=== PATIENT | male | born 1975 | race Caucasian/White ===

== ENCOUNTER → 2020-06-03 11:50 | Outpatient (BNVA) | payer BC, SELFPAY | PROVIDERS: Visit Provider Urology | DX: Z76.89 Persons encountering health services in other specified circumstances (principal) ==

== ENCOUNTER → 2020-10-21 16:03 | Outpatient (BNVA) | payer BC, SELFPAY | PROVIDERS: Visit Provider Urology ==

== ENCOUNTER → 2022-11-14 14:09 | Outpatient (BNVA) | payer MEDICAID, SELFPAY | PROVIDERS: PCP Family Medicine; Visit Provider Urology ==

== ENCOUNTER 2024-07-03 11:26 | Outpatient (AMB) | payer MEDICARE, SELFPAY ==
--- NOTE | 2024-07-03 11:27 | A.OFFPC_ITS ---
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 Intake Note: patient here for new patient visit Mid Wife Required: No Allergies penicillin V Allergy (Unknown, Verified 07/03/24 12:00) Unknown Medication List - Last Reconciled 07/03/24 by Jefe Maria CNP clomiphene citrate 50 mg PO .QOD 90 days tadalafil 10 mg PO DAILY 90 days Tobacco use date assessed: 07/03/24 Dental Screening Dental Screen Date: 07/03/24 Did you have a dental visit in the last 12 months?: No Did you have a dental problem in the last 6 months where you did not have access to dental care?: No Was dental information given to patient?: Yes HPI HPI Comments History of Present Illness Details 48-year-old male presents to establish c are. Prior PCP? - Unknown, likely in [place] Last office visit/CPE/labs - Few years ago Acute issue(s) - He is anxious 60% of time. He attribut es his anxiety symptoms to personal stressors and being an over thinker. He does not want to start psychotropic medications at this time. However, he wishes to consult with her psychiatric provider. Past Medical History - Acid reflux, hypogonadism, erectile dy sfunction, anxiety, ADHD, myopia (wears prescription glasses) Medications - Was on Adderall 15-20 years ago Surgical History - None Family History - Mom: Diabetes - PGM: Diabetes, colon polyps Social History - Nonsmoker. Does not vape. Does not dri nk alcohol. Smokes a bud of cannabis every other day - Has been making healthy dietary choice s. Exercises every other week. Generally sleep well Health maintenance - Last eye exam was 3-4 years ago. Prefe rred to Ophthalmology - Last dental visit was about 4 years ag o; encouraged to schedule an appointment with his dentist for routine dental care. - Last tetanus vaccine was in 2016 or 18 - Has not been vaccinated for the flu ; declines vaccination - Never been vaccinated for shingles; re commend shingle vaccine; may get the vaccine from a local pharmacy - Never had a colonoscopy Specialists - [facility] urology, Dr Li. 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 1. Little interest or pleasure in doing things: several days 2. Feeling down, depressed, or hopeless: several days 3. Trouble falling or staying asleep, or sleeping too much: several days 4. Feeling tired or having little energy: not at all 5. Poor appetite or overeating: several days 6. Feeling bad about yourself - or that you are a failure or have let yourself or your family down: not at all 7. Trouble concentrating on things, such as reading the newspaper or watching television: not at all 8. Moving or speaking so slowly that other people could have noticed. Or the opposite - being so fidgety or restless that you have been moving around a lot more than usual: not at all 9. Thoughts that you would be better off or of hurting yourself in some way: not at all Total score: 4 Depression Screening Interpretation: Negative Depression Screening Done: Yes 48525 - PHQ-9 Billing: Yes Source: Developed by Drs. Jairo Whitaker, Jossy Mukherjee, Black Kahn and colleagues, with an educational hina from [employer]. Thrive Questionnaire Date Thrive assessed: 07/03/24 I am a: Patient What is your living situation today?: I have a steady place to live Within the past 12 months, did the food you bought not last and you didn't have the money to get more?: Never true Within the past 12 months, did you worry whether your food would run out before you got money to buy more?: Never true Do you have trouble paying for medicines?: No Do you have trouble getting transportation to medical appointments?: No Do you have trouble paying your heating and electricity bill?: No Do you have trouble taking care of your child, family member or friend?: No Do you have trouble with day-to-day activities such as bathing, preparing meals, shopping, managing finances, etc.?: No Are you currently unemployed and looking for a job?: No Are you interested in more education?: No THRIVE Score: 0 AUDIT C Alcohol Use Questionnaire (AUDIT-C) 1. How often do you have a drink containing alcohol?: Never Total Score: 0 Score Reviewed/Action Taken: Yes BLAIRE-7 AMB Questionnaire BLAIRE-7 Date BLAIRE - 7 assessed: 07/03/24 Feeling nervous, anxious, or on edge: 2 = More than half the days Not being able to stop or control worryin = More than half the days Worrying too much about different things: 2 = More than half the days Trouble relaxin = More than half the days Being so restless that it is hard to sit still: 2 = More than half the days Becoming easily annoyed or irritable: 2 = More than half the days Feeling afraid as if something awful might happen: 1 = Several days Total BLAIRE-7 score (0-4 normal; 5-9 mild; 10-14 moderate; 15-21 severe): 13 Source: Developed by Drs. Jairo Whitaker, Jossy Mukherjee, Black Kahn and colleagues, with an educational hina from [employer]. BLAIRE-7 Assessment Billing BLAIRE-7 Assessment Tool: BLAIRE-7 Assessment 61952 Review of Systems Const Details: Denies chills, Denies fatigue, Denies fever(s), Denies headache(s) and Denies weakness HEENT Denies change in vision, Denies dizziness, Denies headache(s), Denies hearing loss, Denies nasal congestion, Denies sinus pain, Denies sinus pressure and Dave es sore throat Card Denies chest pain, Denies lightheadedness, Denies dyspnea and Denies other (palpitations) Resp Denies cough, Denies dyspnea and Denies wheezing GI Denies abdominal pain, Denies melena, Denies hematochezia, Denies change in bowel habits, Denies dyspepsia and Denies nausea Denies hematuria and Denies dysuria Musc Denies abnormal gait, Denies myalgias, Denies arthralgias, Denies numbness and Denies tingling Skin/Breast Denies rash, Denies unusual bruising and Denies wounds Neuro Denies abnormal gait, Denies dizziness, Denies headache(s), Denies memory loss, Denies numbness, Denies Sensory deficit (Neuro), Denies tingling and Denies weakness Psych Reports anxiety, Denies depression and Denies memory loss Endo Denies cold intolerance, Denies fatigue, Denies heat intolerance, Denies polydipsia and Denies polyuria Maximo/Lymph Denies easy bleeding and Denies easy bruising Aller/Immun Denies wheezing Physical exam (Primary Care) Vital Signs: Last Vital Signs Temp 97.7 F 07/03/24 11:46 Pulse 69 07/03/24 11:46 Resp 16 07/03/24 11:46 BP 109/69 07/03/24 11:46 Pulse Ox 96 07/03/24 11:46 Oxygen Delivery Method Room Air 07/03/24 11:46 BMI result Body Mass Index 23.8 Tobacco/Smoking Status: Tobacco use Status Tobacco use date assessed 07/03/24 07/03/24 11:40 Patient Tobacco Use Status Never used Tobacco 07/03/24 11:40 e-Cigarette/Vaping Use Never Used 07/03/24 11:40 PHQ-9: PHQ-9 Score PHQ-9: Total score 4 07/03/24 11:51 Depression Screening Interpretation: Negative Thrive Assessment: Date of Thrive Assessment Date Thrive assessed 07/03/24 07/03/24 11:49 Const Other: General: no acute distress, well developed, alert and awake Nutritional Appearance: well nourished Orientation/consciousness: patient oriented x3 HENMT Head: Yes normocephalic and Yes atraumatic Ears: hearing grossly normal bilaterally and TM's normal bilaterally General nose exam: Normal external nose present and Normal nares present Mouth: Normal oral and palatal mucosa present and moist mucous membranes Teeth and gingiva: dentition normal Throat: Yes oropharynx normal Eyes Pupils: Equal, round and reactive pupils present and Pupil accommodation reflex normal EOM: EOMs intact bilaterally Neck Neck: Yes normal visual inspection, Yes no lymphadenopathy and Yes trachea midline Thyroid: Thyroid normal Carotids: no bruits Lymphatic: no lymphadenopathy noted Chest Chest palpation & inspection: normal inspection of the chest Resp Effort & Inspection: normal respiratory effort Auscultation: clear to auscultation bilaterally Cardio Rate: regular rate Rhythm: regular rhythm Heart sounds: S1 normal heart sound present, S2 normal heart sound present, no gallops, no murmurs and no rubs Bruits: no abdominal aortic bruits and no carotid bruits GI Palpation (GI): No Abdominal aortic bruit present, Soft to palpation, nontender, No hepatosplenomegaly present and No Rebound tenderness present Auscultation: normal bowel sounds General: Yes no CVA tenderness Back/Spine/Pelvis Back: no CVA tenderness Cervical Spine: cervical ROM normal and No Cervical spine tenderness Thoracic/Lumbar Spine: thoraco-lumbar ROM normal, No pain with thoraco-lumbar ROM, No thoracic spinal tenderness and No lumbar spinal tenderness Skin General: warm and dry. Normal skin color. Normal skin turgor Lesions: no lesions Rashes: no rashes Trauma: no lacerations or abrasions Wounds: no wounds Nails: normal Neuro General: patient oriented x3, gait normal and CN's II-XI intact bilaterally Cranial nerves: Yes Equal, round and reactive pupils present Cognition (Neuro): normal cognition Gait exam (Neuro): Normal gait present Motor exam (neuro): 5/5 motor strength present throughout Sensory Exam: No Sensory deficit (Neuro) Deep tendon reflexes (DTR's): Right patellar reflex intensity grade: 2+ and Left patellar reflex intensity grade: 2+ Extrem General: Yes normal to inspection, No edema and No calf tenderness Psych Appearance: grossly normal Affect: normal affect Attitude: cooperative Thought process: Normal thought process present Coding Level of Care Code New Pt Level 3 (15348) New Pt Prev Care 40-64y(36929) Diagnoses Normal physical examination, routine Z00.00 Hypogonadism in male E29.1 Erectile dysfunction N52.9 Anxiety F41.9 ADHD F90.9 Prostate cancer screening Z12.5 Colon cancer screening Z12.11 Laboratory tests ordered as part of a complete physical exam (CPE) Z00.00 Additional Codes BLAIRE-7 Assessment Billing - BLAIRE-7 Assessment Tool: BLAIRE-7 Assessment 67823 ([id number]) PHQ-9 - 09753 - PHQ-9 Billing: Yes ([id number]) Assessment & Plan Assessment & Plan (1) Normal physical examination, routine: Code(s): Z00.00 - Encounter for general adult medical examination without abnormal findings Category: Medical Plan: No significant functional limitations noted. Advised to get fasting blood work done and schedule a telehealth visit in 2-3 weeks for labs review or return sooner with symptoms or concerns. Verbalized understanding and agreed with treatment plan. (2) Hypogonadism in male: Code(s): E29.1 - Testicular hypofunction Category: Medical Plan: On clomiphene citrate and tadalafil. Was followed by Dr. Li, urologist. New referral made to Dr. Li. (3) Erectile dysfunction: Code(s): N52.9 - Male erectile dysfunction, unspecified Category: Medical Plan: Reports as per HPI (4) Anxiety: Code(s): F41.9 - Anxiety disorder, unspecified Category: Medical Plan: BLAIRE-7 score revealed moderate anxiety. PHQ-9 score is normal. Declines medication treatment at this time. Contact information given for [facility]; advised to contact them before his next visit. Will refer to another provider if there issues with health insurance coverage. Verbalized understanding and agreed with the plan. (5) ADHD: Code(s): F90.9 - Attention-deficit hyperactivity disorder, unspecified type Category: Medical Plan: Plan as above. (6) Prostate cancer screening: Code(s): Z12.5 - Encounter for screening for malignant neoplasm of prostate Category: Medical Plan: PSA lab ordered. (7) Colon cancer screening: Code(s): Z12.11 - Encounter for screening for malignant neoplasm of colon Category: Medical Plan: He has never had a colonoscopy. Referred to [facility] gastroenterology for colonoscopy. (8) Laboratory tests ordered as part of a complete physical exam (CPE): Code(s): Z00.00 - Encounter for general adult medical examination without abnormal fin dings Category: Medical Plan: Fasting labs ordered as part of a complete physical exam. Advised to fast for at least 10 hours before getting labs drawn. May drink water Verbalized understanding and agreed with treatment plan. Orders: Orders Comprehensive [place]. Panel Fast Today Z00.00 - Encounter for general adult medical examination without abnormal findings Lipid Panel Today Z00.00 - Encounter for general adult medical examination without abnormal findings TSH reflex Free T4 Today Z00.00 - Encounter for general adult medical e xamination without abnormal findings UA CC w/rflx Micro + Cult Today Z00.00 - Encounter for general adult medical examination without abnormal findings Complete Blood Count Auto Diff Today Z00.00 - Encounter for general adult medical examination without abnormal findings Microalbumin, Random (w Creat) Today Z00.00 - Encounter for general adult medical examination without abnormal findings PSA, Ultra Sensitive Today Z00.00 - Encounter for general adult medical examination without abnormal findings Referrals Gastroenterology Referral Z12.11 - Encounter for screening for malignant neoplasm of colon Urology Referral E29.1 - Testicular hypofunction, N52.9 - Male erectile dysfunction, unspecified
[2024-07-03 11:46] VITALS: BP 109/69; PULSE 69; RESP 16; TEMP 36.5; O2SAT 96; BMI 23.8
== END 2024-07-03 12:32 | disposition home or self-care (01) ==
PROVIDERS: PCP Nurse Practitioner Family; Visit Provider Nurse Practitioner Family
DX: Z00.00 Encounter for general adult medical examination without abnormal findings (principal); E29.1 Testicular hypofunction; N52.9 Male erectile dysfunction, unspecified; F41.9 Anxiety disorder, unspecified; F90.9 Attention-deficit hyperactivity disorder, unspecified type; Z12.5 Encounter for screening for malignant neoplasm of prostate; Z12.11 Encounter for screening for malignant neoplasm of colon

== ENCOUNTER → 2024-07-03 11:26 | Outpatient (BNVA) | payer OTHER, SELFPAY | PROVIDERS: PCP Nurse Practitioner Family; Visit Provider Nurse Practitioner Family | DX: Z00.00 Encounter for general adult medical examination without abnormal findings (principal); E29.1 Testicular hypofunction; N52.9 Male erectile dysfunction, unspecified; F41.9 Anxiety disorder, unspecified; F90.9 Attention-deficit hyperactivity disorder, unspecified type | CPT/HCPCS: 96127 ==

== ENCOUNTER 2024-07-15 12:13 | Outpatient (REF) | payer OTHER, SELFPAY ==
[2024-07-15 14:57] LABS: MANUAL DIFF FLAG NO
[2024-07-15 15:03] LABS: Basophils Absolute Auto 0.1 X10*3/uL (0.0-0.2); Eosinophils Absolute Auto 0.1 X10*3/uL (0.0-0.4); Eosinophils Percent Auto 1.1 % (0-4); Hematocrit 41.8 % (42.0-52.0); Hemoglobin 14.1 g/dl (14.0-18.0); Imm Gran Abs Auto 0.03 X10*3/uL (0.00-0.03); Imm Gran Pct Auto 0.4 % (0.0-0.4); Lymphocytes Percent Auto 27.6 % (20-40); Mean Corpuscular HGB Conc 33.7 g/dl (31.0-36.0); Mean Corpuscular Hemoglobin 28.4 pg (27.0-33.0); Mean Corpuscular Volume 84.1 fL (80.0-98.0); Mean Platelet Volume 10.1 fL (9.4-12.4); Monocytes Absolute Auto 0.4 X10*3/uL (0.1-1.2); Monocytes Percent Auto 5.5 % (2-11); Neutrophils Absolute Auto 4.7 x10*3/uL (2.0-8.3); Neutrophils Percent Auto 64.4 % (45-73); Platelet Count 304 X10*3/uL (160-400); Red Blood Count 4.97 X10*6/uL (4.60-5.80); Red Cell Distribution Width 13.6 % (11.0-16.0); White Blood Count 7.3 X10*3/uL (4.8-10.8)
[2024-07-15 15:13] LABS: Appearance Urine Clear; Color Urine Yellow; Glucose Urine UA Negative (Negative); Leukocyte Esterase Urine Negative (Negative); Nitrite Urine Negative (Negative); PH 6.5 (5.0-9.0); Specific Gravity - Urine <= 1.005 (1.005-1.025); Urine Blood Negative (Negative); Urine Ketones Negative (Negative); Urine Protein Negative (Neg-Trace)
[2024-07-15 15:30] LABS: Alanine Aminotransferase 24 U/L (0-40); Albumin Level 4.4 g/dL (3.5-5.0); Alkaline Phosphatase 44 U/L (39-117); Anion Gap 12 (12-20); Aspartate Amino Transferase 25 U/L (5-37); Bilirubin Total 0.6 mg/dL (0.0-1.0); Blood Urea Nitrogen 14 mg/dL (9-16); Calcium 9.4 mg/dL (8.4-10.2); Carbon Dioxide 27 mmol/L (22-29); Chloride 103 mmol/L (96-108); Cholesterol 207 mg/dL (<200); Estimated Glomerular Filt Rate > 60; Glucose Fasting 111 mg/dL (60-99); HDL Cholesterol 57 mg/dL (>40); LDL Cholesterol Calculated 120 mg/dL (<100); Potassium 4.1 mmol/L (3.3-5.1); Sodium 138 mmol/L (135-145); Total Protein 7.1 g/dL (6.5-8.0); Triglycerides 154 mg/dL (<150)
[2024-07-15 15:48] LABS: Creatinine Urine 10.25 mg/dL; Microalbumin Urine < 5.0 mg/L
[2024-07-19 17:34] LABS: PSA, Ultra Sensitive 1.88 ng/mL
== END 2024-07-15 12:14 | disposition home or self-care (01) ==
LOC: HO.WFDLDS 12:13
PROVIDERS: Visit Provider Nurse Practitioner Family
DX: Z00.00 Encounter for general adult medical examination without abnormal findings (principal); Z12.5 Encounter for screening for malignant neoplasm of prostate
CPT/HCPCS: 36415; 80053; 80061; 81003; 82570; 84153; 84443; 85025

== ENCOUNTER 2024-07-23 14:45 | Outpatient (AMB) | payer OTHER, SELFPAY ==
--- NOTE | 2024-07-23 14:43 | A.OFFPC_ITS ---
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 He offers no complaints and denies acute symptoms at this time. 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 Current occupational exposures/hazards: No Cognitive needs: No Hearing needs: No Vision needs: Yes Questionnaire Thrive Questionnaire Date Thrive assessed: 07/03/24 I am a: Patient What is your living situation today?: I have a steady place to live Within the past 12 months, did the food you bought not last and you didn't have the money to get more?: Never true Within the past 12 months, did you worry whether your food would run out before you got money to buy more?: Never true Do you have trouble paying for medicines?: No Do you have trouble getting transportation to medical appointments?: Yes Do you have trouble paying your heating and electricity bill?: No Do you have trouble taking care of your child, family member or friend?: No Do you have trouble with day-to-day activities such as bathing, preparing meals, shopping, managing finances, etc.?: No Are you currently unemployed and looking for a job?: No Are you interested in more education?: No Please select the resources that you would like help with: None Currently or been in a relationship where the following occur: No concerns reported THRIVE Score: 1 AUDIT C Alcohol Use Questionnaire (AUDIT-C) 2. How many drinks containing alcohol do you have on a typical day when you are drinking?: 1 or 2 3. How often do you have six or more drinks on one occasion?: Never Total Score: 0 BLAIRE-7 AMB Questionnaire BLAIRE-7 Date BLAIRE - 7 assessed: 07/03/24 Source: Developed by Drs. Jairo Whitaker, Jossy Mukherjee, Black Kahn and colleagues, with an educational hina from [employer]. Review of Systems Const Details: Denies chills, Denies fatigue, Denies fever(s), Denies headache(s) and Denies weakness Cardiac Denies chest pain, Denies claudication, Denies leg edema, Denies lightheadedness, Denies palpitations, Denies dyspnea, Denies dyspnea on exertion, Denies orthopnea and Denies other (Loss of consciousness) Resp Denies cough, Denies excessive phlegm production, Denies dyspnea, Denies dyspnea on exertion, Denies snoring and Denies wheezing Physical exam (Primary Care) Tobacco/Smoking Status: Tobacco use Status Tobacco use date assessed 07/23/24 07/23/24 14:45 Patient Tobacco Use Status Never used Tobacco 07/23/24 14:45 e-Cigarette/Vaping Use Never Used 07/23/24 14:45 Thrive Assessment: Date of Thrive Assessment Date Thrive assessed 07/03/24 07/23/24 14:45 Currently or been in a relationship where the following occur: No concerns reported Const Other: Telehealth visit. No physical exam. Telehealth Telehealth Telehealth Platform: Telephone Location of provider rendering services: practice address Location of patient: address on file Patient Identification confirmed using: Name, : Yes Telehealth method: voice only Patient verbally consented to treatment: Yes Patient verbally consented to billing insurance company: Yes Patient informed of any privacy concerns related to visit: Yes Coding Level of Care Code Tele Est Pt Level 3 (43171) Diagnoses Hyperlipidemia E78.5 Elevated fasting glucose R73.01 Time Spent (min) 10 Assessment & Plan Assessment & Plan (1) Hyperlipidemia: Code(s): E78.5 - Hyperlipidemia, unspecified Category: Medical Plan: Recent triglyceride, total cholesterol, and LDL levels are slightly elevated, 154, 207, and 120 respectively. Advised to limit foods high in saturated fat and avoid foods high in trans fat. Routine exercise encouraged. Fast for 10-12 hours, may drink water, and get blood work done to 3 days before next visit. Follow-up for telehealth visit in 3 months. Verbalized understanding and agreed with the plan. (2) Elevated fasting glucose: Code(s): R73.01 - Impaired fasting glucose Category: Medical Plan: Recent fasting glucose is slightly elevated, 111. Encouraged to get repeat fasting blood work as soon as he can. Will recheck fasting glucose and make changes as needed. Verbalized understanding and agreed with the plan. Orders: Orders Glucose Fasting Today R73.01 - Impaired fasting glucose Lipid Panel 3 Months E78.5 - Hyperlipidemia, unspecified
== END 2024-07-23 15:28 | disposition home or self-care (01) ==
LOC: HO.HMCFM 14:45
PROVIDERS: PCP Nurse Practitioner Family; Visit Provider Nurse Practitioner Family
DX: E78.5 Hyperlipidemia, unspecified (principal); R73.01 Impaired fasting glucose

== ENCOUNTER → 2024-07-23 14:45 | Outpatient (BNVA) | payer OTHER, SELFPAY | PROVIDERS: PCP Nurse Practitioner Family; Visit Provider Nurse Practitioner Family ==

== ENCOUNTER 2024-11-07 14:25 | Outpatient (AMB) | payer OTHER, SELFPAY ==
--- NOTE | 2024-11-07 14:25 | MHC.OFFVIS ---
Intake Visit Reasons: ED/testicular hypofunction(last seen 2022) Intake Note: Patient is present for ED/TESTICULAR HYPOFUNCTION Urology Medication:TADALAFIL Antibiotic Allergy:PENICILLIN V Blood Thinner:NONE Mash Processing Operator Required: No Allergies penicillin V Allergy (Unknown, Verified 11/07/24 14:27) Unknown HPI Comments Details: Michael is a pleasant male. He is a patient of Dr. Jimenez. He is seen for the following urologic conditions - hypogonadism - erectile dysfunction Telemedicine evaluation 15 minute consultation Doximity asiya Video attempted 10 mg daily tadalafil Start enclomiphene 12 week follow-up check testosterone T labs - 10/07 319 7.6 Free Hypogonadism: Currently respond well to tadalafil as single agent Previously had been on clomiphene 50 mg every other day He presents today for further evaluation and followup of his hypogonadism Current therapy Initial symptoms include erectile dysfunction Yes decreased libido Yes change in mood/depression Yes in muscle size/strength Yes increased fatigue/malaise Yes The onset of symptoms has been gradual, over the past few years. Associate conditions include obstructive sleep apnea No CAD No obesity No stress - financial, family, employment No heavy alcohol or illicit drug use No Laboratory results - 10/05 T 340 PSA 1.9 Therapeutic plan repeat baseline laboratory [facility] Medical History (Updated 07/23/24 @ 15:16 by Jefe Maria CNP) Anxiety Acid reflux Sinusitis Left leg injury Family History (Updated 07/03/24 @ 11:45 by Loretta Fleming MA) Son Mental illness in member of household Mother Diabetes Paternal Grandmother Diabetes Social History (Updated 07/03/24 @ 11:40 by Loretta Fleming MA) Housing: Apartment Patient Tobacco Use Status: Never used Tobacco e-Cigarette/Vaping Use: Never Used Second Hand Smoke Exposure: No Substance Use Type: Marijuana service: No Current occupational status: employed 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 Current occupational exposures/hazards: No Cognitive needs: No Hearing needs: No Vision needs: Yes Review of Systems Const All systems reviewed & are unremarkable except as noted in HPI and below Reports no additional complaints Resp Reports no additional complaints GI Reports no additional complaints Reports as per HPI Musc Reports no additional complaints Physical Exam Telemedicine evaluation Appropriate responses Regular breathing rate and rhythm HEENT Head: Yes normal to inspection Ears: hearing grossly normal bilaterally Eyes General: appearance normal, both eyes and all related structures Neck Neck: Yes normal visual inspection Chest Chest palpation & inspection: normal inspection of the chest Resp Effort & Inspection: normal respiratory effort and able to speak in complete sentences Telehealth Telehealth Location of provider rendering services: practice address Location of patient: address on file Patient Identification confirmed using: Name, : Yes Telehealth method: voice only Patient verbally consented to treatment: Yes Patient verbally consented to billing insurance company: Yes Patient informed of any privacy concerns related to visit: Yes Assessment & Plan Assessment & Plan (1) Erectile dysfunction: Code(s): N52.9 - Male erectile dysfunction, unspecified Category: Medical (2) Hypogonadism in male: Code(s): E29.1 - Testicular hypofunction Category: Medical Plan Initiate enclomiphene Three-month follow-up lab work Orders: Orders Testosterone, Free/Total 10 Weeks E29.1 - Testicular hypofunction Patient Instructions: This note is constructed using voice recognition software. While every effort has been made to ensure accuracy licensed investment sales assistant errors may have been included. Imaging studies, laboratory and physical exam results were discussed and reviewed in detail. No major barriers to patient understanding were identified. An opportunity to ask questions regarding the treatment plan was provided. All questions were answered. The patient expressed understanding and agreement with the above treatment plan. The patient is aware they should contact our office by phone for worsening of their current condition or the appearance of new urologic symptoms. Compliance is encouraged with any medications and followup testing that is ordered. It is a privilege to participate in the urologic care of your patient. If you have any questions or concerns regarding treatment for the above conditions, or other urologic issues, please do not hesitate to contact me. The office telephone contact is [phone]. Sincerely, Dr Rene Li MD, [facility] - Urology Compassionate Specialist Care for the Genitourinary System Coding Level of Care Code Tele Est Pt Level 4 (59868) Diagnoses Erectile dysfunction N52.9 Hypogonadism in male E29.1
--- OUTSIDE RECORDS SUMMARY | 2024-11-07 15:04 | XMS_ITS | Clinical Summary ---
Author Organization [facility] ity Address [address] [place] [address] Care Team Providers Care Shells Inspector Name Role Phone Unavailable Primary Care Provider Unavailabl e Social History Tobacco Use Types Packs/Day Years Used Date Smoking Tobacco: Never Assessed Sex and Gender Information Value Date Recorded Sex Assigned at Not on file Legal Sex Male 2:44 PM EST Gender Identity Not on file Sexual Orientation Not on file Plan of Treatment Health Maintenance Due Date Last Done Comments DTaP,Tdap,and Td Vaccines (1 - Tdap) 1993 Hepatitis B Vaccines (1 of 3 - 19+ 3-dose series) 1993 COVID-19 Vaccine ( - 2023-2 5 season) 2024 Pneumococcal Vaccine: 50+ Ye ars (1 of 1 - PCV) 2024 Zoster Vaccines (1 of 2) 2024 Influenza Vaccine (Season Ended) 2025 HIB Vaccines Aged Out No longer eligi ble based on patient's age to complete this topic HPV Vaccines Aged Out No longer eligi ble based on patient's age to complete this topic Hepatitis A Vaccines Aged Out No long er eligible based on patient's age to complete this topic IPV Vaccines Aged Out No longer eligi ble based on patient's age to complete this topic MMR Vaccines Aged Out No longer eligi ble based on patient's age to complete this topic Meningococcal ACWY Vaccine Aged Out N o longer eligible based on patient's age to complete this topic Meningococcal B Vaccine Aged Out No l onger eligible based on patient's age to complete this topic Pneumococcal Vaccine: Pediat rics (0 to 5 Years) and At-Risk Patients (6 to 64 Years) Aged Out No longer eligible b ased on patient's age to complete this topic RSV Immunization Patients Un yrn 20 months Aged Out No longer eligible b ased on patient's age to complete this topic Varicella Vaccines Aged Out No longer eligible based on patient's age to complete this topic
== END 2024-11-07 16:30 | disposition home or self-care (01) ==
LOC: HO.HUSH 14:25
PROVIDERS: PCP Nurse Practitioner Family; Visit Provider Urology
DX: N52.9 Male erectile dysfunction, unspecified (principal); E29.1 Testicular hypofunction
CPT/HCPCS: 99214

== ENCOUNTER → 2024-11-07 14:25 | Outpatient (BNVA) | payer OTHER, SELFPAY | PROVIDERS: PCP Nurse Practitioner Family; Visit Provider Urology ==

== ENCOUNTER 2025-02-10 15:41 | Outpatient (AMB) | payer OTHER, SELFPAY ==
--- NOTE | 2025-02-10 15:47 | A.OFFVIS_ITS ---
Vital Signs 02/10/25 15:49 Height 6 ft Weight 255 lb BMI 34.6 BP 112/75 Pulse 75 Pulse Oximetry (%) 96 Oxygen Delivery Method Room Air Intake Visit Reasons: Colonoscopy Screening Intake Note: Patient new consult for EGD/Colonoscopy Screening. Patient cc: heartburn on and off, Family hx of polyps. Dietetic Assistant Required: No Accompanied by: Self / Same As Patient Allergies penicillin V Allergy (Unknown, Verified 02/10/25 15:47) Unknown Medication List - Last Reconciled 02/10/25 by Antonieta Montanez CNP [enclomiphene 1 tab PO DAILY 90 days] tadalafil 10 mg PO DAILY 90 days HPI HPI Colonoscopy Screening: Details: Patient is a 49-year-old male with PMH of anxiety and acid reflux. Referred by PCP for pre colonoscopy screening. This will be Michael's first colonoscopy. He reports experiencing daily bowel movements that are occasionally loose but denies frequent loose stools or constipation. He last noticed blood in his stool around five years ago, and states that it was nothing alarming. Michael occasionally experiences mild heartburn, approximately once every few months, primarily after consuming spicy or late-night meals. When heartburn occurs, it typically resolves on its own or with the occasional use of Tums. His appetite remains unchanged. Michael's weight has increased from 236 to 255 pounds since June, which he attributes to depression and irregular dietary habits. Patient denies: fever/chills, n/v, appetite changes, regurgitation,dysphasia, unintentional wt loss, ab pain or melena/hematochezia. Social hx: -denies ETOH use -occasional use of psychoactive mushrooms, denies other recreational drug use - former smoker, cessation 2016 - family hx as below - denies personal hx of CA - significant cardiopulmonary history -tolerated anesthesia in the past without difficulty. 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 Current occupational exposures/hazards: No Cognitive needs: No Hearing needs: No Vision needs: Yes Review of Systems Const Reports as per HPI ENT Reports as per HPI Card Reports as per HPI Resp Reports as per HPI GI Reports as per HPI Reports as per HPI Physical Exam Vital Signs: Last Vital Signs Pulse 75 02/10/25 15:49 BP 112/75 02/10/25 15:49 Pulse Ox 96 02/10/25 15:49 Oxygen Delivery Method Room Air 02/10/25 15:49 BMI result Body Mass Index 34.6 Const General: healthy appearing, no acute distress and well developed Nutritional Appearance: average body habitus Orientation/consciousness: patient oriented x3 HEENT Head: Yes normal to inspection, Yes normocephalic and Yes atraumatic Face and sinus: Yes normal facial exam Eyes General: appearance normal, both eyes and all related structures Neck Neck: Yes normal visual inspection Resp Effort & Inspection: normal respiratory effort, able to speak in complete sentences, no tracheal deviation and symmetric chest movement Cardio Jugular venous distension: no JVD Neuro General: patient oriented x3 Gait exam (Neuro): Normal gait present Psych Appearance: grossly normal Mental Status: mental status grossly normal Speech and movement: Normal speech and movement present Affect: normal affect Attitude: cooperative Thought process: Normal thought process present Thought content: Normal thought content present Insight: Good insight present (Psych) Judgement: Good judgement present (Psych) Assessment & Plan Assessment & Plan (1) Colon cancer screening: Code(s): Z12.11 - Encounter for screening for malignant neoplasm of colon Category: Medical Plan: Due for index screening colonoscopy. Rare intermittent blood in stools. Medications: -prescriptions for laxative tablets and MiraLax sent to pharmacy; instructions for Gatorade purchase and clear liquid diet given. Patient educated on scheduling process, procedure preparation, including avoiding certain foods and ensuring clear liquid intake Advised on necessity for ride post-procedure due to sedation. (2) Mild acid reflux: Code(s): K21.9 - Gastro-esophageal reflux disease without esophagitis Category: Medical Plan: infrequent episodes of heartburn without the need for ongoing medication. Episodes occur primarily after consuming triggered foods or eating late at n ight. Further Testing: Upper endoscopy during the colonoscopy to evaluate for esophagitis, gastritis or Carrasco's esophagus. Medication Management: He declined additional pharmacological management and prefers to continue Tums PRN as needed for heartburn. Education on GERD prevention : -Advised against heavy meals; encouraged small, frequent meals instead of large ones. - Instructed to remain upright for 2?3 hours after eating. - Advised to avoid late-night meals, spicy foods, caffeine, alcohol, known dietary triggers, and tight-fitting clothing. - Emphasis placed on gradual implementation of lifestyle changes to improve adherence and symptom control. (3) Hyperlipidemia: Code(s): E78.5 - Hyperlipidemia, unspecified Category: Medical Qualifiers: Hyperlipidemia type: mixed hyperlipidemia Qualified Code(s): E78.2 - Mixed hyperlipidemia Plan: elevated cholesterol on recent labs; dietary habits and weight gain noted. Further Testing: recommend repeat lipid panel per PCP. Medication Management: coordinate with PCP for ongoing management. Lifestyle Recommendations: Improve diet (reduce saturated fats, increase fiber), increase physical activity as tolerated, weight management strategies. Plan Follow-up after endoscopy or sooner as needed Time: I spent a total of 30 minutes on the date of encounter which includes: Preparing to see the patient (reviewed previous documentation, test results and medical history) Performing a medically appropriate exam and/or evaluation Ordering medications, tests, and procedures Documenting clinical information in the health record Medications: New bisacodyl (Dulcolax (bisacodyl)) Take four tablets pre colonoscopy instructions 20 mg (4 x 5 mg) PO ONCE 4 tabs 0RF 1 day polyethylene glycol 3350 (Miralax) per colonoscopy prep instructions 238 grams PO ONCE 238 grams 0RF Coding Level of Care Code New Pt New Pt Level 3 (93974) Patient Type New Diagnoses Colon cancer screening Z12.11 Mild acid reflux K21.9 Mixed hyperlipidemia E78.2 Hyperlipidemia type: mixed hyperlipidemia
[2025-02-10 15:49] VITALS: BP 112/75; PULSE 75; O2SAT 96; BMI 34.6
--- OUTSIDE RECORDS SUMMARY | 2025-02-10 16:23 | XMS_ITS | Clinical Summary ---
Author Organization [facility] ity Address [address] [place] [address] Care Team Providers Care Tentering Machine Off Bearer Name Role Phone Unavailable Primary Care Provider [...] Vaccine ( - 2023-2 5 season) 2024 Depression Screening 07/16/2024 Pneumococcal Vaccine: 50+ Ye ars (1 of 1 - PCV) 2024 Zoster Vaccines (1 of 2) 2024 Influenza Vaccine (#1) 2025 HIB Vaccines Aged Out No longer [...]
== END 2025-02-10 16:20 | disposition home or self-care (01) ==
LOC: HO.HGI 15:42
PROVIDERS: PCP Nurse Practitioner Family; Visit Provider Nurse Practitioner Family
DX: K21.9 Gastro-esophageal reflux disease without esophagitis (principal); E78.2 Mixed hyperlipidemia
CPT/HCPCS: 99203

== ENCOUNTER 2025-03-23 10:53 | Day surgery (SDC) | payer OTHER, SELFPAY ==
--- OUTSIDE RECORDS SUMMARY | 2025-02-23 10:14 | XMS_ITS | Clinical Summary ---
Author Organization [facility] ity Address [address] [place] [address] Care Team Providers Care Tape Rules Printing Machine Operator Name Role Phone Unavailable Primary Care Provider [...]
[2025-03-19 14:28] VITALS: BMI 34.6
--- NOTE | 2025-03-20 11:15 | P.CONAN_ITS ---
Documented by User: Amairani Eduardo NP 03/20/25 11:15 HPI - Anesthesia Eval Consult details Narrative: 49 yr old male for upper endoscopy, colonoscopy [facility] Active Problems Active Problems: All Active Problems (Updated 03/19/25 @ 14:26 by Fauzia Ruano RN) Mild acid reflux (Acute) Elevated fasting glucose (Acute) Hyperlipidemia (Acute) Colon cancer screening (Acute) Prostate cancer screening (Acute) ADHD (Acute) Normal physical examination, routine (Acute) Laboratory tests ordered as part of a complete physical exam (CPE) (Acute) Hypogonadism in male (Acute) Erectile dysfunction (Acute) Anxiety (Acute) Past Medical History Medical History Erectile dysfunction ADHD (attention deficit hyperactivity disorder) Hyperlipidemia Anxiety Acid reflux Sinusitis Family History Family History Son Mental illness in member of household Mother Diabetes Paternal Grandmother Diabetes Surgical History Surgical History (Updated 03/23/25 @ 13:07 by Katie Gilliland RN) Hx of tonsillectomy History of surgery on lower extremity Social History Social History (Updated 03/19/25 @ 14:31 by Fauzia Ruano RN) Household Members Other:: son Housing: Apartment Are you a primary health care facility administrator to a significant other at home: No Do you presently have visiting nurse or other home services: No Patient Tobacco Use Status: Former Tobacco user Tobacco use type: Cigarette e-Cigarette/Vaping Use: Never Used Second Hand Smoke Exposure: No Substance Use Type: Marijuana Substance Use Frequency: Occasionally Other Past Substance Use Problem:: occasional use of psychoactive mushrooms per PCP OV Have you been hit, kicked, punched, or otherwise hurt by someone within the past year? 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 Current occupational exposures/hazards: No Cognitive needs: No Hearing needs: No Vision needs: Yes Meds Allergies Allergy/AdvReac Type Severity Reaction Status Date / Time penicillin V Allergy Unknown Unknown Verified 03/23/25 12:47 Exam Height,Weight and Vital Signs: Height 6 ft Weight 115.666 kg Documented by User: Yariel Todd MD 03/23/25 13:47 PMFSH Past Medical History Medical History Erectile dysfunction ADHD (attention deficit hyperactivity disorder) Hyperlipidemia Anxiety Acid reflux Sinusitis Family History Family History Son Mental illness in member of household Mother Diabetes Paternal Grandmother Diabetes Surgical History Surgical History (Updated 03/23/25 @ 13:07 by Katie Gilliland RN) Hx of tonsillectomy History of surgery on lower extremity Social History Social History (Updated 03/19/25 @ 14:31 by Fauzia Ruano RN) Household Members Other:: son Housing: Apartment Are you a primary health care facility administrator to a significant other at home: No Do you presently have visiting nurse or other home services: No Patient Tobacco Use Status: Former Tobacco user Tobacco use type: Cigarette e-Cigarette/Vaping Use: Never Used Second Hand Smoke Exposure: No Substance Use Type: Marijuana Substance Use Frequency: Occasionally Other Past Substance Use Problem:: occasional use of psychoactive mushrooms per PCP OV Have you been hit, kicked, punched, or otherwise hurt by someone within the past year? 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 Current occupational exposures/hazards: No Cognitive needs: No Hearing needs: No Vision needs: Yes Meds Allergies Allergy/AdvReac Type Severity Reaction Status Date / Time penicillin V Allergy Unknown Unknown Verified 03/23/25 12:47 Exam Airway Mallampati Class: III TM Dist: >3cm Neck ROM: Full Loose/Missing/Broken Teeth: No Heart: RRR Lungs: CTA Assessment and Plan Assessment Anesthesia Assessment: Anesthesia Plan Discussed Final Anesthetic Review NPO: Yes ASA Class: III Final Preanesthetic Review: No Changes in Pt Med Stat and Meds/Allgs Chart Reviewed Patient Risk: Low Procedure Risk: Low Anesthetic Plan Anesthetic Plan: MAC: Disposition: Standard PACU
[2025-03-23] MEDS: Lactated Ringers 1,000 ML 100 ML IVCONT (12:55)
[2025-03-23 12:57] VITALS: BP 126/66; PULSE 90; RESP 18; TEMP 36.7; O2SAT 99
[2025-03-23 13:05] VITALS: BMI 35.0
--- NOTE | 2025-03-23 13:10 | MHC.SHP ---
Pre-Procedural Eval Section A - 24 Hr Update-Section A only Date of Service: 03/23/25 The patient is an INPATIENT: No The patient has been examined within 24 hours of the surgical procedure. The History & Physical has been completed within 30 days and I have reviewed it.: No Section B - Complete if H&P > 30 days Chief Complaint: screening,gerd, Relevant Family History (Specify if Yes): No Relevant Social History: Tobacco Use (Former smoker) Present Medications: see Short Stay Collaborative assessment Medical History: Significant History (Mild acid reflux Anxiety Acid reflux Sinusitis Left leg injury) History of Previous Operations: Relevant previous surgery/procedure and date(s) (History of surgery on lower extremity) Allergies: Allergies Allergy/AdvReac Type Severity Reaction Status Date / Time penicillin V Allergy Unknown Unknown Verified 03/23/25 12:47 Review of Systems Sugical H&P ROS: Negative: Constitution, Cardiovascular and Respiratory and Yes, Specify: Gastrointestinal (GERD) Exam Surgical H&P Exam: Normal: Lungs, Normal: Extremities and Normal: Abdomen Plan Diagnosis/Plan: Unchanged I have reviewed the history and physical and performed a pertinent physical examination on my patient. No changes have occurred unless specified. Time Spent With Patient Time: Total time managing care of this patient today ____ minutes.
--- NOTE | 2025-03-23 14:09 | HO.OPN-COLON ---
Colonoscopy Operative Note Operative Note Date of Service: 03/23/25 Narrative: FLEXIBLE TRANSORAL UPPER GASTROINTESTINAL ENDOSCOPY WITH BIOPSIES AND COLONOSCOPY TILL CECUM WITH BIOPSIES Pre-op diagnosis: Colon cancer screening, GERD Post-op diagnosis: GERD, Gastritis, hiatal hernia, Diverticulosis, hemorrhoids Endoscopist:Sonia Rubio MD Anesthesia:?MAC UPPER ENDOSCOPY Consent: Indications for the procedure and potential complications of bleeding, perforation, reaction to medications and missed diagnosis were discussed with the patient and informed consent was obtained. Instrument: Olympus GIF H 190 mid size upper endoscope Monitoring: Vital signs and clinical assessment, continuous EKG monitoring, Pulse oximetry, Carbon Dioxide monitoring and blood pressure monitoring were done throughout the procedure. Procedure: The patient was placed in the left lateral decubitis position and pre-procedure medications were administered and a bite block was placed. The endoscope was inserted into the mouth and advanced under direct vision to the third part of duodenum. A careful inspection was made as the upper endoscope was withdrawn including a retroflexed examination of the proximal stomach; Findings and interventions are described below. Findings: Larynx: Normal Esophagus: GE junction at 36 cms, moderate sized hiatal hernia 36 to 40 cms. A 2 cms tongue of possible Carrasco's - biopsied. Focal esophagitis at GE junction with a few superficial 2-3 mm healing erosions Stomach: Moderate diffuse gastric erythema - biopsies were obtained from the antrum. Grade 3 flap valve on retroflexed examination of the cardia. Duodenum: Normal bulb and descending duodenum Intervention: Biopsies as noted above COLONOSCOPY PROCEDURE NOTE Instrument: Olympus CF H 190 L variable stiffness adult colonoscope Monitoring: Vital signs and clinical assessment, intermittent blood pressure monitoring, continuous EKG monitoring, Pulse oximetry and Carbon Dioxide monitoring were done throughout the procedure. Please see anesthesia flowsheet. Colon withdrawl time was 18 minutes. Procedure: The patient was placed in the left lateral decubitis position and pre-procedure medications were administered. After a digital rectal examination of the ano-rectum, the video colonoscope was inserted into the rectum and advanced through the colon to the cecum. The colonoscope was slowly withdrawn in a retrograde panoramic fashion and the colon mucosa was carefully examined including a retroflexed view of the rectum. Findings and interventions are described below. Procedure Difficulty: without difficulty Findings: Terminal Ileum: Not evaluated Cecum: Normal Ascending Colon: Normal Transverse Colon: Normal Descending Colon: Normal Sigmoid Colon: Moderate diverticulosis Rectum: Normal Ano-rectum: Moderate internal hemorrhoids Colon preparation: Good after copious irrigation. [place] Bowel Preparation Scale Right colon; 2 Transverse colon: 2 Left colon; 2 (0 = Unprepared colon segment with mucosa not seen due to solid stool that cannot be cleared. 1 = Portion of mucosa of the colon segment seen, but other areas of the colon segment not well seen due to staining, residual stool and/or opaque liquid. 2 = Minor amount of residual staining, small fragments of stool and/or opaque liquid, but mucosa of colon segment seen well. 3 = Entire mucosa of colon segment seen well with no residual staining, small fragments of stool or opaque liquid) Impression and Post Procedure Diagnosis: Endoscopy Findings: ESOPHAGUS: moderate sized hiatal hernia 36 to 40 cms. A 2 cms tongue of possible Carrasco's - biopsied. Focal esophagitis at GE junction with a few superficial 2-3 mm healing erosions STOMACH: Diffuse gastritis DUODENUM: Normal Colonoscopy Findings: No polyps were detected Random biopsies were obtained from the right and left colon to check for microscopic colitis Moderate diverticulosis seen in the sigmoid colon Moderate hemorrhoids on retroflexed exam. Plan: Pt has a FU appointment on 04/02/25 with Antonieta Montanez NP Repeat Colonoscopy in 10 years if colon biopsies are normal. A summary of above findings and relevant handouts were given to the patient. BIOPSIES SHOWED: A. Stomach, antrum, biopsy: Gastric antral mucosa within normal limits; negative for Helicobacter pylori, intestinal metaplasia and dysplasia. B. Esophagus, distal, biopsy: Squamocolumnar junctional mucosa with mild chronic inactive inflammation and intestinal metaplasia consistent with Carrasco's esophagus (see comment). C. Colon, right, biopsy: Colonic mucosa within normal limits; negative for active, chronic or microscopic colitis. D. Colon, left, biopsy: Colonic mucosa within normal limits; negative for active, chronic or microscopic colitis. COMMENT (B): These findings are consistent with Carrasco's esophagus if the biopsies were taken above the anatomic gastroesophageal junction. Clinical and endoscopic correlation is advised Letter sent to the patient with biopsy results and patient handout on Barretts esophagus. Patient was placed on the procedure recall list for repeat EGD (FU of Barretts) in 1 year and repeat colonoscopy in 10 years.
[2025-03-23 14:45] VITALS: BP 95/58; PULSE 96; RESP 20; TEMP 36.6; O2SAT 95
[2025-03-23 15:00] VITALS: BP 118/75; PULSE 50; RESP 18; TEMP 36.5; O2SAT 99
[2025-03-23 15:15] VITALS: BP 129/87; PULSE 56; RESP 18; O2SAT 99
== END 2025-03-23 15:30 | disposition home or self-care (01) ==
PROVIDERS: PCP Nurse Practitioner Family; Visit Provider Internal Medicine Gastroenterology
PROC: (CPT 45380; principal; 2025-03-23 12:40)
DX: Z12.11 Encounter for screening for malignant neoplasm of colon (principal); K57.30 Diverticulosis of large intestine without perforation or abscess without bleeding; K64.8 Other hemorrhoids; Z83.719 Family history of colon polyps, unspecified; K21.9 Gastro-esophageal reflux disease without esophagitis; K29.60 Other gastritis without bleeding; K44.9 Diaphragmatic hernia without obstruction or gangrene; E78.5 Hyperlipidemia, unspecified; Z79.899 Other long term (current) drug therapy
CPT/HCPCS: 45380; 43239; 88305; 88313; 88342; J2003; J2704

== ENCOUNTER → 2025-03-23 10:53 | Outpatient (BNV) | payer OTHER, SELFPAY | PROVIDERS: PCP Nurse Practitioner Family; Visit Provider Internal Medicine Gastroenterology | DX: Z12.11 Encounter for screening for malignant neoplasm of colon (principal); K57.30 Diverticulosis of large intestine without perforation or abscess without bleeding; K64.9 Unspecified hemorrhoids; K21.00 Gastro-esophageal reflux disease with esophagitis, without bleeding; K29.70 Gastritis, unspecified, without bleeding | CPT/HCPCS: 43239; 45380 ==

== ENCOUNTER 2025-04-02 13:46 | Outpatient (AMB) | payer OTHER, SELFPAY ==
--- NOTE | 2025-04-02 13:48 | MHC.OFFVIS ---
Vital Signs 04/02/25 13:51 Height 6 ft Weight 242 lb 8.136 oz BMI 32.9 BP 138/78 Blood Pressure Location Lt brachial Position Sitting Pulse 76 Intake Visit Reasons: colonoscopy Intake Note: Michael presents in the office as a follow up colonoscopy. CC: States that he is here for results - had the EGD as well concerned of Carrasco's. 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 F/u on 03/23/25 EGD and colonoscopy results performed for mild reflux and age-appropriate CRC screening. Pt?s reflux symptoms remain mild, predominantly diet-induced, occurring infrequently (e.g., after heavy/late meals, 1 episode of mild heartburn last night). No consistent dysphagia, abd pain, n/v, or other alarm sxs. Bowel habits regular with rare hard stool; one recent episode of scant blood per rectum this morning (pt reports similar only once in past ~5 yrs), likely related to minor trauma/straining. Denies ongoing constipation if usual routines maintained. Lifestyle factors: pt drinks 2 cups coffee/day, otherwise water; plans diet modification, inc. no eating after 6pm, and inc. exercise. Has not been using any acid suppression therapy until today, following visit to [facility]. No prior med intolerance noted. No reported medication/lifestyle non-compliance, but did not previously require chronic therapy. No recent hospitalizations or acute flares since prior GI eval. Shares he is relocating to [place] at the end of the year. 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 Erectile dysfunction ADHD (attention deficit hyperactivity disorder) Hyperlipidemia Anxiety Acid reflux Sinusitis Surgical History (Updated 04/02/25 @ 13:54 by KARI Fuller) History of esophagogastroduodenoscopy (EGD) Hx of colonoscopy Hx of tonsillectomy History of surgery on lower extremity Family History Son Mental illness in member of household Mother Diabetes Paternal Grandmother Diabetes Social History (Updated 03/19/25 @ 14:31 by Fauzia Ruano RN) Household Members Other:: son Housing: Apartment Are you a primary senior caregiver to a significant other at home: No Do you presently have visiting nurse or other home services: No Patient Tobacco Use Status: Former Tobacco user Tobacco use type: Cigarette e-Cigarette/Vaping Use: Never Used Second Hand Smoke Exposure: No Substance Use Type: Marijuana service: No Current occupational status: employed 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 Current occupational exposures/hazards: No Cognitive needs: No Hearing needs: No Vision needs: Yes Review of Systems Const Reports as per HPI ENT Reports as per HPI Card Reports as per HPI Resp Reports as per HPI GI Reports as per HPI Reports as per HPI Physical Exam Const General: healthy appearing, no acute distress and well developed Nutritional Appearance: average body habitus Orientation/consciousness: patient oriented x3 HEENT Head: Yes normal to inspection, Yes normocephalic and Yes atraumatic Face and sinus: Yes normal facial exam Eyes General: appearance normal, both eyes and all related structures Neck Neck: Yes normal visual inspection Resp Effort & Inspection: normal respiratory effort, able to speak in complete sentences, no tracheal deviation and symmetric chest movement Cardio Jugular venous distension: no JVD Neuro General: patient oriented x3 Gait exam (Neuro): Normal gait present Psych Appearance: grossly normal Mental Status: mental status grossly normal Speech and movement: Normal speech and movement present Affect: normal affect Attitude: cooperative Thought process: Normal thought process present Thought content: Normal thought content present Insight: Good insight present (Psych) Judgement: Good judgement present (Psych) Results Reviewed Results Reviewed: Operative Note Date of Service: 03/23/25 Narrative: FLEXIBLE TRANSORAL UPPER GASTROINTESTINAL ENDOSCOPY WITH BIOPSIES AND COLONOSCOPY TILL CECUM WITH BIOPSIES Pre-op diagnosis: Colon cancer screening, GERD Post-op diagnosis: GERD, Gastritis, hiatal hernia, Diverticulosis, hemorrhoids Endoscopist: Bill Rubio MD Anesthesia: MAC UPPER ENDOSCOPY Consent: Indications for the procedure and potential complications of bleeding, perforation, reaction to medications and missed diagnosis were discussed with the patient and informed consent was obtained. Instrument: Olympus GIF H 190 mid size upper endoscope Monitoring: Vital signs and clinical assessment, continuous EKG monitoring, Pulse oximetry, Carbon Dioxide monitoring and blood pressure monitoring were done throughout the procedure. Procedure: The patient was placed in the left lateral decubitis position and pre-procedure medications were administered and a bite block was placed. The endoscope was inserted into the mouth and advanced under direct vision to the third part of duodenum. A careful inspection was made as the upper endoscope was withdrawn including a retroflexed examination of the proximal stomach; Findings and interventions are described below. Findings: Larynx: Normal Esophagus: GE junction at 36 cms, moderate sized hiatal hernia 36 to 40 cms. A 2 cms tongue of possible Carrasco's - biopsied. Focal esophagitis at GE junction with a few superficial 2-3 mm healing erosions Stomach: Moderate diffuse gastric erythema - biopsies were obtained from the antrum. Grade 3 flap valve on retroflexed examination of the cardia. Duodenum: Normal bulb and descending duodenum Intervention: Biopsies as noted above COLONOSCOPY PROCEDURE NOTE Instrument: Olympus CF H 190 L variable stiffness adult colonoscope Monitoring: Vital signs and clinical assessment, intermittent blood pressure monitoring, continuous EKG monitoring, Pulse oximetry and Carbon Dioxide monitoring were done throughout the procedure. Please see anesthesia flowsheet. Colon withdrawl time was 18 minutes. Procedure: The patient was placed in the left lateral decubitis position and pre-procedure medications were administered. After a digital rectal examination of the ano-rectum, the video colonoscope was inserted into the rectum and advanced through the colon to the cecum. The colonoscope was slowly withdrawn in a retrograde panoramic fashion and the colon mucosa was carefully examined including a retroflexed view of the rectum. Findings and interventions are described below. Procedure Difficulty: without difficulty Findings: Terminal Ileum: Not evaluated Cecum: Normal Ascending Colon: Normal Transverse Colon: Normal Descending Colon: Normal Sigmoid Colon: Moderate diverticulosis Rectum: Normal Ano-rectum: Moderate internal hemorrhoids Colon preparation: Good after copious irrigation. [place] Bowel Preparation Scale Right colon; 2 Transverse colon: 2 Left colon; 2 (0 = Unprepared colon segment with mucosa not seen due to solid stool that cannot be cleared. 1 = Portion of mucosa of the colon segment seen, but other areas of the colon segment not well seen due to staining, residual stool and/or opaque liquid. 2 = Minor amount of residual staining, small fragments of stool and/or opaque liquid, but mucosa of colon segment seen well. 3 = Entire mucosa of colon segment seen well with no residual staining, small fragments of stool or opaque liquid) Impression and Post Procedure Diagnosis: Endoscopy Findings: ESOPHAGUS: moderate sized hiatal hernia 36 to 40 cms. A 2 cms tongue of possible Carrasco's - biopsied. Focal esophagitis at GE junction with a few superficial 2-3 mm healing erosions STOMACH: Diffuse gastritis DUODENUM: Normal Colonoscopy Findings: No polyps were detected Random biopsies were obtained from the right and left colon to check for microscopic colitis Moderate diverticulosis seen in the sigmoid colon Moderate hemorrhoids on retroflexed exam. Plan: Pt has a FU appointment on 04/02/25 with Antonieta Montanez NP Repeat Colonoscopy in 10 years if colon biopsies are normal. A summary of above findings and relevant handouts were given to the patient. BIOPSIES SHOWED: A. Stomach, antrum, biopsy: Gastric antral mucosa within normal limits; negative for Helicobacter pylori, intestinal metaplasia and dysplasia. B. Esophagus, distal, biopsy: Squamocolumnar junctional mucosa with mild chronic inactive inflammation and intestinal metaplasia consistent with Carrasco's esophagus (see comment). C. Colon, right, biopsy: Colonic mucosa within normal limits; negative for active, chronic or microscopic colitis. D. Colon, left, biopsy: Colonic mucosa within normal limits; negative for active, chronic or microscopic colitis. COMMENT (B): These findings are consistent with Carrasco's esophagus if the biopsies were taken above the anatomic gastroesophageal junction. Clinical and endoscopic correlation is advised Letter sent to the patient with biopsy results and patient handout on Barretts esophagus. Patient was placed on the procedure recall list for repeat EGD (FU of Barretts) in 1 year and repeat colonoscopy in 10 years. 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 Indications for repeat in 1 year Code(s): K22.70 - Carrasco's esophagus without dysplasia Category: Medical Plan: Stable, mild reflux sxs, Carrasco?s present (non-dysplastic), no dysphagia/weight loss/melena. goal is to suppress acid to minimize progression. Goal is to suppress acid to reduce progression Carrasco?s, control sxs. Educated on potential long-term risks. Additional Testing: Repeat EGD in 12 months for surveillance (arrange at new PCP/[place] [facility] after move). Medications:Started omeprazole 20 mg PO qAM, 90 days w/ 1 refill (6-mo supply), Monitor for side effects (abd pain, diarrhea, B12 def, etc.). Lifestyle Recommendations: -Reinforce trigger avoidance (late meals, high fat/fried/acidic foods, minimize coffee/alcohol), adv. water for hydration. -Discussed educational handout re: Carrasco?s, reviewed known triggers -recommend ongoing physical activity/weight management. Referrals / Coordination:EGD referral for surveillance in 1 year, to be coordinated w/ [place] PCP/GI. Offer records transfer. F/u Plan: -No routine clinic f/u with this office due to relocation. Pt to f/u w/ GI in [place] and repeat EGD within 12 months. - Offered interim refill to cover transition if needed. -Monitor and report new/worsening sxs (dysphagia, GI bleed, wt loss, abd pain). (2) Diverticulosis: Comment: 03/23/25 colonoscopy with good prep after copious irrigation -Diverticulosis, hemorrhoids. recommendations to repeat in 10 years Code(s): K57.90 - Diverticulosis of intestine, part unspecified, without perforation or abscess without bleeding Category: Medical Plan: Asymptomatic. No intervention required absent diverticulitis or ongoing GI bleeding. Additional Testing: None. Medications: None indicated. Lifestyle: Emphasized high fiber diet and hydration to prevent constipation/future complications. F/u: Monitor for diverticulitis (fever, LLQ pain, acute GI bleed). (3) Internal hemorrhoids: Code(s): K64.8 - Other hemorrhoids Category: Medical Plan: Stable, rare minor [place] bleeding, not problematic. Conservative symptom-based mgmt appropriate given low frequency of minor bleeding. Additional Testing: None at present. Medications: PRN fiber/Miralax if constipated. No chronic therapy indicated. Lifestyle: Continue fiber, hydration, avoid straining; pt advised on signs of thrombosis/severe bleeding. Referral: None at present; consider gen surg if refractory, severe sxs develop. F/u: PRN. (4) Hiatal hernia: Code(s): K44.9 - Diaphragmatic hernia without obstruction or gangrene Category: Medical Plan: Asymptomatic, moderate size. Rationale: No surgical indication; managed conservatively; monitor for new/worsening reflux. Additional Testing: None. Medications: As above (omeprazole). Lifestyle: Continue avoiding large meals, lying down after eating, avoid triggers. Referral: None needed at this time. F/u: Monitor w/ above plan. Plan Follow-up as needed prior to relocating to [place] Time: I spent a total of 30 minutes on the date of encounter which includes: Preparing to see the patient (reviewed previous documentation, test results and medical history) Performing a medically appropriate exam and/or evaluation Ordering medications, tests, and procedures Documenting clinical information in the health record Medications: New omeprazole Take one tablet daily. Best taken on an empty, 30 minutes before eating. 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
[2025-04-02 13:51] VITALS: BP 138/78; PULSE 76; BMI 32.9
--- OUTSIDE RECORDS SUMMARY | 2025-04-02 15:50 | XMS_ITS | Clinical Summary ---
Author Organization [facility] ity Address [address] [place] [id number] Care Team Providers Care Draft Roller Picker Name Role Phone Unavailable Primary Care Provider [...] of 3 - 19+ 3-dose series) 1993 Depression Screening 07/16/2024 Pneumococcal Vaccine: 50+ Ye ars (1 of 1 - PCV) 2024 Zoster Vaccines (1 of 2) 2024 COVID-19 Vaccine (1 - 2023-2 5 season) 2025 Influenza Vaccine (#1) 2025 HIB Vaccines Aged [...]
== END 2025-04-02 14:30 | disposition home or self-care (01) ==
LOC: HO.HGI 13:47
PROVIDERS: PCP Nurse Practitioner Family; Visit Provider Nurse Practitioner Family
DX: K22.70 Barrett's esophagus without dysplasia (principal); K57.90 Diverticulosis of intestine, part unspecified, without perforation or abscess without bleeding; K64.8 Other hemorrhoids; K44.9 Diaphragmatic hernia without obstruction or gangrene
CPT/HCPCS: 99214

== ENCOUNTER 2025-06-10 15:10 | Outpatient (AMB) | payer OTHER, SELFPAY ==
--- NOTE | 2025-06-10 15:11 | MHC.OFFVIS ---
Intake Visit Reasons: PSA/Testosterone/Med Review(set) Intake Note: Reason for Visit: Testosterone/PSA Results/Med Review Urology Meds: Tadalafil Blood Thinners: None Labs: PSA- 1.8 Testosterone- 331 (05/29/2025) Imaging: None Last PVR: None Horologist Apprentice Required: No Allergies penicillin V Allergy (Unknown, Verified 06/10/25 15:11) Unknown HPI Comments Details: Michael is a pleasant male. He is a patient of Dr. Jimenez. He is seen for the following urologic conditions - hypogonadism - erectile dysfunction Telemedicine Evaluation 15 min Consultation [employer] [facility] Video Follow-up after starting enclomiphene Symptomatic improvement Had run out of medications Refill T labs - 10/07 319 7.6 Free, 06/09 331 1.8 PSA Hypogonadism: Currently respond well to tadalafil as single agent Previously had been on clomiphene 50 mg every other day He presents today for further evaluation and followup of his hypogonadism Current therapy Initial symptoms include erectile dysfunction Yes decreased libido Yes change in mood/depression Yes in muscle size/strength Yes increased fatigue/malaise Yes The onset of symptoms has been gradual, over the past few years. 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 Erectile dysfunction ADHD (attention deficit hyperactivity disorder) Hyperlipidemia Anxiety Acid reflux Sinusitis Surgical History History of esophagogastroduodenoscopy (EGD) Hx of colonoscopy Hx of tonsillectomy History of surgery on lower extremity Family History Son Mental illness in member of household Mother Diabetes Paternal Grandmother Diabetes Social History Household Members Other:: son Housing: Apartment Are you a primary home care manager to a significant other at home: No Do you presently have visiting nurse or other home services: No Patient Tobacco Use Status: Former Tobacco user Tobacco use type: Cigarette e-Cigarette/Vaping Use: Never Used Second Hand Smoke Exposure: No Substance Use Type: Marijuana service: No Current occupational status: employed 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 Current occupational exposures/hazards: No Cognitive needs: No Hearing needs: No Vision needs: Yes Review of Systems Const All systems reviewed & are unremarkable except as noted in HPI and below Reports no additional complaints Resp Reports no additional complaints GI Reports no additional complaints Reports as per HPI Musc Reports no additional complaints Physical Exam Telemedicine evaluation Appropriate responses Regular breathing rate and rhythm HEENT Head: Yes normal to inspection Ears: hearing grossly normal bilaterally Eyes General: appearance normal, both eyes and all related structures Neck Neck: Yes normal visual inspection Chest Chest palpation & inspection: normal inspection of the chest Resp Effort & Inspection: normal respiratory effort and able to speak in complete sentences Telehealth Telehealth Telehealth Platform: Telephone Location of provider rendering services: practice address Location of patient: address on file Patient Identification confirmed using: Name, : Yes Telehealth method: voice only Patient verbally consented to treatment: Yes Patient verbally consented to billing insurance company: Yes Patient informed of any privacy concerns related to visit: Yes Assessment & Plan Assessment & Plan (1) Erectile dysfunction: Code(s): N52.9 - Male erectile dysfunction, unspecified Category: Medical (2) Hypogonadism in male: Code(s): E29.1 - Testicular hypofunction Category: Medical Plan Continue current medications Six-month follow-up Orders: Orders Testosterone, Total 6 Months E29.1 - Testicular hypofunction Medications: New [enclomiphene] [facility] [place] - Fax Patient Cell Number - [phone] 1 tab PO DAILY [address] [facility] - Fax 90 days E29.1 - Testicular hypofunction Changed From tadalafil 10 mg PO DAILY 90 tabs 0RF sexual activity E29.1 - Testicular hypofunction To tadalafil 20 mg PO DAILY 90 tabs 1RF sexual activity 90 days E29.1 - Testicular hypofunction From [enclomiphene 6.25 mg] Patient Cell Number - 1 tab PO DAILY 90 days 90 tabs 1RF E29.1 - Testicular hypofunction To [enclomiphene] [facility] [place] - Fax Patient Cell Number - [phone] 1 tab PO DAILY 90 tabs 1RF 90 days E29.1 - Testicular hypofunction Patient Instructions: This note is constructed using voice recognition software. While every effort has been made to ensure accuracy commissioning manager errors may have been included. Imaging studies, laboratory and physical exam results were discussed and reviewed in detail. No major barriers to patient understanding were identified. An opportunity to ask questions regarding the treatment plan was provided. All questions were answered. The patient expressed understanding and agreement with the above treatment plan. The patient is aware they should contact our office by phone for worsening of their current condition or the appearance of new urologic symptoms. Compliance is encouraged with any medications and followup testing that is ordered. It is a privilege to participate in the urologic care of your patient. If you have any questions or concerns regarding treatment for the above conditions, or other urologic issues, please do not hesitate to contact me. The office telephone contact is [phone]. Sincerely, Dr Rene Li MD, [facility] - Urology Compassionate Specialist Care for the Genitourinary System Coding Level of Care Code Tele Est Pt Level 3 (19695) Diagnoses Erectile dysfunction N52.9 Hypogonadism in male E29.1
--- OUTSIDE RECORDS SUMMARY | 2025-06-10 17:41 | XMS_ITS | Clinical Summary ---
Author Organization [facility] ity Address [address] [place] [address] Care Team Providers Care Icicle Machine Operator Name Role Phone Unavailable Primary [...] of 2) 2024 COVID-19 Vaccine (1 - 2024-2 6 season) 2025 Influenza Vaccine (#1) 2025 RSV Immunization Adult Patie nts (1 - 1-dose 75+ series) 2049 HIB Vaccines Aged Out No longer eligi [...]
== END 2025-06-10 16:29 | disposition home or self-care (01) ==
LOC: HO.HUSH 15:10
PROVIDERS: PCP Nurse Practitioner Family; Visit Provider Urology
DX: N52.9 Male erectile dysfunction, unspecified (principal); E29.1 Testicular hypofunction
CPT/HCPCS: 98013